=== PATIENT | female | born 1960 | race Caucasian/White ===

== ENCOUNTER 2023-04-17 20:36 | Emergency (ER) | payer OTHER, SELFPAY ==
[2023-04-17 20:57] VITALS: BP 179/82; PULSE 64; RESP 18; TEMP 36.4; O2SAT 100; BMI 27.0
--- NOTE | 2023-04-17 21:08 | ED.CHESTPAI1 ---
HPI - Chest Pain General Chief Complaint: Chest Pain Stated Complaint: chest pain Time Seen by Provider: 04/17/23 21:08 Source: patient Mode of arrival: walk-in Limitations: no limitations History of Present Illness HPI narrative: Patient presents to emergency department complaining of chest heaviness. She states she has had this pain intermittently for the past month. She was recently diagnosed with atrial fibrillation. She is taking blood thinners. She states she felt flushed and nauseated after the pain. She had 2 episodes one this morning and 1 L throughout the day. The episodes last couple seconds. She denies any palpitations, dizziness, shortness of breath. She follows up with Dr. Abreu for cardiology. She denies any abdominal pain. She denies any diarrhea, constipation. She denies any sore throat, shortness of breath or upper respiratory infection symptoms. She denies any fever, chills. Related Data Home Medications Medication Instructions Recorded Confirmed apixaban 5 mg tablet (Eliquis) mg 04/17/23 aspirin 81 mg tablet,delayed mg 04/17/23 release atorvastatin 20 mg tablet mg 04/17/23 cholecalciferol (vitamin D3) 125 5,000 unit PO DAILY 04/17/23 04/17/23 mcg (5,000 unit) capsule diltiazem HCl 240 mg mg PO 04/17/23 capsule,extended release 24 hr estradiol 1 mg tablet mg 04/17/23 furosemide 20 mg tablet mg 04/17/23 lansoprazole 30 mg capsule,delayed mg 04/17/23 release levothyroxine 125 mcg tablet mcg 04/17/23 multivitamin 1 tab PO DAILY 04/17/23 04/17/23 propafenone 325 mg mg PO 04/17/23 capsule,extended release 12 hr psyllium husk 0.4 gram capsule 0.4 g PO DAILY 04/17/23 04/17/23 (Metamucil) semaglutide 1 mg/dose (4 mg/3 mL) mg subcut 04/17/23 subcutaneous pen injector (Ozempic) vitamin B complex (Complex B-100 1 tab PO DAILY 04/17/23 04/17/23 tablet,extended release) Allergies Allergy/AdvReac Type Severity Reaction Status Date / Time Iodinated Contrast Media Allergy Severe Verified 04/17/23 20:57 Review of Systems ROS Status of ROS 10 or more systems reviewed and unremarkable except as noted in history and below [facility] Social History Smoking status: Current every day smoker Exam Narrative Exam Narrative: Nurses notes and vital signs reviewed and patient is not hypoxic. General: Nontoxic, Well-appearing and in no apparent distress. Skin: Warm, dry, no pallor noted. No Rash Head: Normocephalic, atraumatic. Neck: Supple, non-tender. Eye: Pupils are equal, round and EOMI. No scleral icterus. Ears, Nose, Mouth, and Throat: TM clear, no posterior oropharynx erythema or nasal mucosal hypertrophy, uvula is mid-line Oral mucosa is moist Cardiovascular: Regular Rate and Rhythm without murmur, gallop or rub. Respiratory: No accessory muscle use or respiratory distress. Lungs are clear to auscultation, no wheezing, rales or rhonchi Chest Wall: no tenderness Back: No midline thoracic or lumbar vertebral tenderness. No CVA tenderness Musculoskeletal: normal ROM, no calf or popliteal tenderness, no lower extremity edema/swelling GI: Abdomen is soft, non-distended. Normal bowel sounds. No masses appreciated. No tenderness to palpation. No rebound, guarding, or rigidity noted. Neurological: A&O x4. No cranial nerve dysfunction observed. No truncal ataxia. Moves all extremities. Sensation intact. Psychiatric: Cooperative and interactive. Normal mood and affect. Constitutional Vital Signs, click to edit/add: Last Vital Signs Temp 97.6 F 04/17/23 20:57 Pulse 64 04/17/23 20:57 Resp 18 04/17/23 20:57 BP 179/82 H 04/17/23 20:57 Pulse Ox 100 04/17/23 20:57 O2 Del Method Room Air 04/17/23 20:57 Course Vital Signs Vital signs: Vital Signs Temperature 97.6 F 04/17/23 20:57 Pulse Rate 64 04/17/23 20:57 Respiratory Rate 18 04/17/23 20:57 Blood Pressure 179/82 H 04/17/23 20:57 Pulse Oximetry 100 04/17/23 20:57 Oxygen Delivery Method Room Air 04/17/23 20:57 Temperature 97.6 F 04/17/23 20:57 Pulse Rate 64 04/17/23 20:57 Respiratory Rate 18 04/17/23 20:57 Blood Pressure 179/82 H 04/17/23 20:57 Pulse Oximetry 100 04/17/23 20:57 Oxygen Delivery Method Room Air 04/17/23 20:57 MDM - Chest Pain MDM Narrative Medical decision making narrative: Patient is chest pain-free in the emergency department. Patient's EKG, sinus rhythm patient chest x-ray is unremarkable.Patient was monitored left studies were done troponin remained stable without a delta. All results were discussed with patient. Patient is safe for monitoring which she has declined. 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 At this time the patient is without objective evidence of an acute process requiring hospitalization or inpatient management. The patient has remained hemodynamically stable. No additional indication for emergent studies at this time. I answered all questions. Discussed discharge instructions including standard anticipatory guidance and what should prompt a return to the emergency department, including if they get worse are not getting better or develops any new or concerning symptoms. I've given them specific time frame in which to follow-up, and who to follow-up with. The patient demonstrates understanding. Patient is nontoxic and stable for discharge with outpatient follow-up. This note was created with the assistance of a speech recognition program. Although the intention is to generate documents that actually reflects the content of the visit, no guarantees can be provided that every mistake has been identified and corrected by editing. Medical Records Data Attestation: I reviewed the patient's medical records. Lab Data Attestation: I reviewed the patient's lab results. Labs: Lab Results 04/17/23 04/17/23 Range/Units 21:05 22:37 WBC 11.4 H (4.0-11.0) 10^3/uL RBC 3.97 L (4.20-5.40) 10^6/uL Hgb 13.2 (12.0-16.0) g/dL Hct 37.9 (36.0-48.0) % MCV 95.5 (81.0-99.0) fL MCH 33.2 (26.7-34.0) pg MCHC 34.8 (29.9-35.2) g/dL RDW 13.2 (11.0-15.0) % Plt Count 273 (150-450) 10^3/uL MPV 10.3 (9.5-13.5) fL Neut % (Auto) 52.2 (43.0-75.0) % Lymph % (Auto) 33.6 (20.5-60.0) % Polk % (Auto) 7.8 (1.7-12.0) % Eos % (Auto) 4.9 (0.9-7.0) % Baso % (Auto) 0.8 (0.2-2.0) % Neut # (Auto) 6.0 (1.4-6.5) 10^3/uL Lymph # (Auto) 3.8 (1.2-3.8) 10^3/uL Polk # (Auto) 0.9 H (0.3-0.8) 10^3/uL Eos # (Auto) 0.6 (0.0-0.7) 10^3/uL Baso # (Auto) 0.1 (0.0-0.1) 10^3/uL Abs Immat Gran (auto) 0.08 H (0.00-0.03) 10^3/uL Imm/Tot Granulo (auto) 0.7 H (0.0-0.5) % PT 10.1 (9.0-11.6) sec INR 0.95 APTT 33.0 (22.3-36.2) sec Sodium 141 (136-145) mmol/L Potassium 3.5 (3.5-5.1) mmol/L Chloride 103 (98-107) mmol/L Carbon Dioxide 26.1 (21.0-32.0) mmol/L Anion Gap 15.4 BUN 16.0 (7.0-18.0) mg/dL Creatinine 1.08 H (0.55-1.02) mg/dL Est GFR ( Amer) >60 (>=60) Est GFR (Non-Af Amer) 51 L (>=60) BUN/Creatinine Ratio 14.8 Glucose 107 H (74-106) mg/dL Calcium 9.0 (8.5-10.1) mg/dL Total Bilirubin 0.2 (0.2-1.0) mg/dL AST 8 L (15-37) U/L ALT 10 L (14-59) U/L Alkaline Phosphatase 157 H (46-116) U/L Troponin I High Sens 4.9 5.3 (4.0-51.3) pg/mL NT-Pro-B Natriuret Pep 62.0 (<=900.0) pg/mL Total Protein 7.6 (6.4-8.2) g/dL Albumin 3.6 (3.4-5.0) g/dL Globulin 4.0 g/dL Albumin/Globulin Ratio 0.9 ECG Data Attestation: I personally reviewed and interpreted this ECG as follows: Heart Score History: Slightly/Non-Suspicious ECG: Normal Age: <45 years Risk Factors: 1 or 2 Risk Factors Troponin: <Normal Limit Total Heart Score Recommendations & Risks:: 1 Discharge Plan Discharge Chief Complaint: Chest Pain Clinical Impression: Chest pain Patient Disposition: Home, Self-Care Time of Disposition Decision: 23:32 Condition: Good Mode of Transportation: Private Vehicle Prescriptions / Home Meds: No Action atorvastatin 20 mg tablet diltiazem HCl 240 mg capsule,extended release 24hr PO aspirin 81 mg tablet,delayed release (DR/EC) estradiol 1 mg tablet levothyroxine 125 mcg tablet lansoprazole 30 mg capsule,delayed release(DR/EC) furosemide 20 mg tablet propafenone 325 mg capsule,extended release 12 hr PO Eliquis 5 mg tablet Ozempic 1 mg/dose (4 mg/3 mL) pen injector SUBCUT Complex B-100 Tablet Extended Release 1 tab PO DAILY cholecalciferol (vitamin D3) 125 mcg (5,000 unit) capsule 5,000 unit PO DAILY psyllium husk [Metamucil] 0.4 gram capsule 0.4 g PO DAILY multivitamin Tablet 1 tab PO DAILY Instructions: Chest Pain (ED) Stand Alone Forms: Portal Instructions Referrals: BISMARK SHEIKH [Primary Care Provider] - 1 week Discharge Date/Time: 04/17/23 23:50
--- NOTE | 2023-04-17 21:10 | ECG_ITS ---
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
--- NOTE | 2023-04-17 21:10 | XR_ITS ---
The [address] [address] Patient Name: BEATRIZ PACE MRN: [id number] date: 1960 Sex: F Assigned Patient Location: ER Current Patient Location: ER Accession/Order Number: [id number] Exam Date: 04/17/2023 21:20 Report Date: 04/17/2023 21:30 At the request of: HARISH JIMENEZ Procedure: XR chest 1V EXAM: XR chest 1V at 2050 hours HISTORY: cp COMPARISON: None. TECHNIQUE: Upright PA and lateral chest x-ray FINDINGS: The heart is not enlarged and the vasculature is not distended. No acute infiltrate, effusion or pneumothorax is identified. The osseous structures are grossly intact. XR/XR chest 1V IMPRESSION: No acute infiltrate or evidence of cardiac decompensation. Direct comparison with a previous study may be helpful in determining the chronicity is findings. Electronically authenticated by: LI EVANGELISTA Date: 04/17/2023 21:30
[2023-04-17 21:26] LABS: Basophils Absolute Auto 0.1 10^3/uL (0.0-0.1); Basophils Percent Auto 0.8 % (0.2-2.0); Eosinophils Absolute Auto 0.6 10^3/uL (0.0-0.7); Eosinophils Percent Auto 4.9 % (0.9-7.0); Hematocrit 37.9 % (36.0-48.0); Hemoglobin 13.2 g/dL (12.0-16.0); Immature Granulocytes Abs Auto 0.08 10^3/uL (0.00-0.03); Immature Granulocytes Pct Auto 0.7 % (0.0-0.5); Lymphocytes Absolute Auto 3.8 10^3/uL (1.2-3.8); Lymphocytes Percent Auto 33.6 % (20.5-60.0); Mean Corpuscular HGB Conc 34.8 g/dL (29.9-35.2); Mean Corpuscular Hemoglobin 33.2 pg (26.7-34.0); Mean Corpuscular Volume 95.5 fL (81.0-99.0); Mean Platelet Volume 10.3 fL (9.5-13.5); Monocytes Absolute Auto 0.9 10^3/uL (0.3-0.8); Monocytes Percent Auto 7.8 % (1.7-12.0); Neutrophils Percent Auto 52.2 % (43.0-75.0); Platelet Count 273 10^3/uL (150-450); Red Blood Count 3.97 10^6/uL (4.20-5.40); Red Cell Distribution Width 13.2 % (11.0-15.0); White Blood Count 11.4 10^3/uL (4.0-11.0)
[2023-04-17 21:41] LABS: Alanine Aminotransferase 10 U/L (14-59); Albumin Globulin Ratio 0.9; Albumin Level 3.6 g/dL (3.4-5.0); Alkaline Phosphatase 157 U/L (46-116); Anion Gap 15.4; Aspartate Amino Transferase 8 U/L (15-37); BUN Creatinine Ratio 14.8; Bilirubin Total 0.2 mg/dL (0.2-1.0); Carbon Dioxide 26.1 mmol/L (21.0-32.0); Chloride 103 mmol/L (98-107); Estimated GFR (African America >60 (>=60); Estimated GFR (Non-African Ame 51 (>=60); Glucose 107 mg/dL (74-106); Potassium 3.5 mmol/L (3.5-5.1); Sodium 141 mmol/L (136-145); Total Protein 7.6 g/dL (6.4-8.2)
[2023-04-17 21:42] LABS: INR 0.95; Prothrombin Time 10.1 sec (9.0-11.6)
[2023-04-17 21:48] LABS: Troponin I High Sensitivity 4.9 pg/mL (4.0-51.3)
[2023-04-17 23:10] LABS: Troponin I High Sensitivity 5.3 pg/mL (4.0-51.3)
== END 2023-04-17 23:50 | disposition home or self-care (01) ==
PROVIDERS: Emergency Provider Emergency Medicine; PCP Family Medicine
DX: R07.9 Chest pain, unspecified (principal); Z79.82 Long term (current) use of aspirin; Z79.890 Hormone replacement therapy; Z79.899 Other long term (current) drug therapy; F17.210 Nicotine dependence, cigarettes, uncomplicated; I48.91 Unspecified atrial fibrillation; Z79.01 Long term (current) use of anticoagulants
CPT/HCPCS: 36415; 71045; 80053; 83880; 84484; 85025; 85610; 85730; 93005; 99285

== ENCOUNTER 2024-01-22 07:29 | Outpatient (RCR) | payer MEDICARE, OTHER, SELFPAY ==
[2024-01-22 15:27] LABS: Basophils Absolute Auto 0.1 10^3/uL (0.0-0.1); Basophils Percent Auto 0.5 % (0.2-2.0); Eosinophils Absolute Auto 0.1 10^3/uL (0.0-0.7); Eosinophils Percent Auto 1.1 % (0.9-7.0); Hematocrit 36.9 % (36.0-48.0); Hemoglobin 11.9 g/dL (12.0-16.0); Immature Granulocytes Pct Auto 0.8 % (0.0-0.5); Lymphocytes Absolute Auto 4.7 10^3/uL (1.2-3.8); Lymphocytes Percent Auto 36.6 % (20.5-60.0); Mean Corpuscular HGB Conc 32.2 g/dL (29.9-35.2); Mean Corpuscular Hemoglobin 33.7 pg (26.7-34.0); Mean Corpuscular Volume 104.5 fL (81.0-99.0); Mean Platelet Volume 10.4 fL (9.5-13.5); Monocytes Percent Auto 7.7 % (1.7-12.0); Neutrophils Absolute Auto 6.8 10^3/uL (1.4-6.5); Neutrophils Percent Auto 53.3 % (43.0-75.0); Platelet Count 337 10^3/uL (150-450); Red Blood Count 3.53 10^6/uL (4.20-5.40); Red Cell Distribution Width 12.4 % (11.0-15.0); White Blood Count 12.8 10^3/uL (4.0-11.0)
[2024-01-22 15:43] LABS: Erythrocyte Sedimentation Rate 63 mm/hr (<=30)
[2024-01-22 15:45] LABS: C Reactive Protein <0.50 mg/dL (<=0.50); Gamma Glutamyl Transpeptidase 20 U/L (8-55); Lactate Dehydrogenase 179 U/L (81-234)
[2024-01-23 15:08] LABS: Albumin 3.3 g/dL (2.9-4.4); Alpha-1-Globulin 0.3 g/dL (0.0-0.4); Alpha-2-Globulin 0.9 g/dL (0.4-1.0); Gamma Globulin 0.8 g/dL (0.4-1.8); Immunoglobulin A, Qn, Serum 99 mg/dL (87-352); Immunoglobulin G, Qn, Serum 799 mg/dL (586-1602); Immunoglobulin M, Qn, Serum 162 mg/dL (26-217); Protein, Total 6.4 g/dL (6.0-8.5)
== END 2024-01-22 23:59 | disposition home or self-care (01) ==
LOC: INF 07:29
PROVIDERS: PCP Family Medicine; Visit Provider Internal Medicine Hematology & Oncology
DX: D72.829 Elevated white blood cell count, unspecified (principal); R74.8 Abnormal levels of other serum enzymes; R71.8 Other abnormality of red blood cells
CPT/HCPCS: 36415; 82784; 82977; 83615; 84075; 84080; 84155; 84165; 85025; 85652; 86140; 86334; G0463

== ENCOUNTER 2024-02-26 09:51 | Outpatient (OUT) | payer MEDICARE, OTHER, SELFPAY ==
--- NOTE | 2024-02-26 10:02 | US_ITS ---
The [address] [address] Patient Name: BEATRIZ PACE MRN: [id number] date: 1960 Sex: F Assigned Patient Location: US Current Patient Location: US Accession/Order Number: [id number] Exam Date: 02/26/2024 10:03 Report Date: 02/26/2024 11:43 At the request of: GISSELL GIBBS Procedure: US right upper quadrant EXAMINATION: US right upper quadrant HISTORY: Elevated White Blood Cell Count, Abnormal Level Of Serum COMPARISON: No relevant comparison available. TECHNIQUE: Transabdominal evaluation of the right upper quadrant. FINDINGS: LIVER: Normal size and echotexture. Color Doppler demonstrates patent hepatic veins. PORTAL VEIN: Duplex Doppler demonstrates normal hepatopetal flow pattern with flow velocity averaging 40 cm/s. GALLBLADDER: Cholecystectomy. BILIARY: No abnormal dilation or stones. Common bile duct diameter is within normal limits. PANCREASE: No visible mass, abnormal atrophy, or duct dilation. KIDNEY: No hydronephrosis. No visible mass or stones. Size: 9.2 x 5.4 x 4.5 cm US/US right upper quadrant IMPRESSION: 1. No suspicious findings to account for patient's symptoms/condition. 2. Prior cholecystectomy. Electronically authenticated by: ENDER MAJANO Date: 02/26/2024 11:43
== END 2024-02-26 09:52 | disposition home or self-care (01) ==
LOC: US 09:51
PROVIDERS: PCP Family Medicine; Visit Provider Internal Medicine Hematology & Oncology
DX: D72.829 Elevated white blood cell count, unspecified (principal); R74.8 Abnormal levels of other serum enzymes; R71.8 Other abnormality of red blood cells; D64.9 Anemia, unspecified
CPT/HCPCS: 76705

== ENCOUNTER 2024-03-11 07:21 | Outpatient (RCR) | payer MEDICARE, OTHER, SELFPAY | END 2024-03-12 15:07 | disposition home or self-care (01) | LOC: INF 07:21 | PROVIDERS: PCP Family Medicine; Visit Provider Internal Medicine Hematology & Oncology | DX: D72.829 Elevated white blood cell count, unspecified (principal); R74.8 Abnormal levels of other serum enzymes; D64.9 Anemia, unspecified; F17.210 Nicotine dependence, cigarettes, uncomplicated | CPT/HCPCS: G0463 ==

== ENCOUNTER 2024-06-09 10:48 | Outpatient (OUT) | payer MEDICARE, OTHER, SELFPAY ==
--- NOTE | 2024-06-09 10:50 | XR_ITS ---
The [address] [address] Patient Name: BEATRIZ PACE MRN: [id number] date: 1960 Sex: F Assigned Patient Location: [facility] Current Patient Location: Accession/Order Number: [id number] Exam Date: 06/09/2024 10:52 Report Date: 06/10/2024 09:12 At the request of: PETEY RAMÍREZ Procedure: XR abdomen 1V EXAMINATION: XR abdomen 1V HISTORY: Kidney Stone COMPARISON: No relevant comparison available. FINDINGS: KIDNEY/URETER - RIGHT: No visible renal or ureteral calcifications. KIDNEY/URETER - LEFT: No visible renal or ureteral calcifications. PELVIS: No visible ureteral calcifications. Any visible calcifications favor phleboliths. BOWEL: No abnormal dilation or deviation. BONES: No acute abnormality. OTHER: Negative. No abnormal gaseous collections. XR/XR abdomen 1V IMPRESSION: No definite urinary tract calculi Electronically authenticated by: BISMARK SMITH Date: 06/10/2024 09:12
== END 2024-06-09 10:49 | disposition home or self-care (01) ==
LOC: RAD 10:48
PROVIDERS: PCP Family Medicine; Visit Provider Physician Assistant
DX: N20.0 Calculus of kidney (principal)
CPT/HCPCS: 74018